=== PATIENT | female | born 1970 | race African-American/Black ===

== ENCOUNTER 2021-03-13 09:22 | Outpatient (CLI) | payer OTHER, SELFPAY ==
[2021-03-13 10:10] LABS: Basophils Percent Auto 0.5 % (0.2-1.2); Eosinophils Absolute Auto 0.1 K/mm3 (0-0.3); Eosinophils Percent Auto 1.7 % (0-4.4); Hematocrit 34.3 % (37.0-47.0); Hemoglobin 10.5 g/dL (12.0-15.0); Immature Granulocyte Absolute 0.01 K/mm3 (0.00-0.031); Immature Granulocyte Percent A 0.2 % (0-0.5); Lymphocytes Absolute Auto 1.33 K/mm3 (0.9-3.2); Lymphocytes Percent Auto 32.4 % (18.3-44.2); Mean Corpuscular HGB Conc 30.6 g/dl (32-36); Mean Corpuscular Hemoglobin 25.4 pg (26-34); Mean Corpuscular Volume 82.9 fl (80-100); Mean Platelet Volume 10.1 fl (7.4-10.4); Monocytes Absolute Auto 0.4 K/mm3 (0.1-0.6); Monocytes Percent Auto 9.2 % (2.6-8.5); Neutrophils Absolute Auto 2.3 K/mm3 (1.3-6.7); Platelet Count Result 270 k/mm3 (150-375); Red Blood Count 4.14 M/mm3 (4.2-5.4); Red Cell Distribution Width 14.6 % (11.5-14.5); White Blood Count 4.1 K/mm3 (4.5-10.0)
[2021-03-13 10:23] LABS: Hemoglobin A1C 5.9 % (<5.7)
[2021-03-13 10:24] LABS: Alanine Aminotransferase 13 U/L (4-35); Albumin Level 4.1 g/dL (3.5-5.1); Alkaline Phosphatase 51 U/L (38-126); Anion Gap 9 mmol/L (8-16); Aspartate Amino Transferase 24 U/L (14-36); Bilirubin,Total 0.1 mg/dL (0.2-1.3); Blood Urea Nitrogen 11 mg/dL (7-17); Calcium 8.9 mg/dL (8.4-10.2); Carbon Dioxide 24 mmol/L (22-30); Chloride 106 mmol/L (98-107); Cholesterol 188 mg/dL (0-200); Estimated Glomerular Filt Rate > 60; Glucose 99 mg/dL (65-105); HDL Direct 59 mg/dL; Potassium 3.9 mmol/L (3.4-5.0); Sodium 139 mmol/L (137-145); Triglycerides 52 mg/dL (<150)
[2021-03-13 10:35] LABS: LDL Cholesterol Direct 86 mg/dL
[2021-03-13 11:48] LABS: Free T4 Free Thyroxine 1.08 ng/mL (0.78-2.19)
== END 2021-03-13 09:23 | disposition home or self-care (01) ==
LOC: ANHLAB 09:24
PROVIDERS: PCP Family Medicine; Visit Provider Family Medicine
DX: R03.0 Elevated blood-pressure reading, without diagnosis of hypertension (principal); E04.1 Nontoxic single thyroid nodule; R73.01 Impaired fasting glucose; Z13.220 Encounter for screening for lipoid disorders
CPT/HCPCS: 36415; 80053; 80061; 83036; 84439; 84443; 85025

== ENCOUNTER 2021-11-05 09:14 | Outpatient (CLI) | payer BC, SELFPAY ==
--- NOTE | ~2021-11-05 | MR_ITS ---
EXAMINATION: MR wrist LT wo con DATE: 11/05/2021 09:55 INDICATION: Left wrist pain TECHNIQUE: Magnetic resonance imaging (MRI) of the left wrist was performed without intravenous contr ast. Sequences performed include axial PD-weighted FSE and PD-weighted FS FSE, coronal PD-weighted FS FSE and T1-weighted SE, and sagittal PD-weighted FS FSE and PD-weighted FSE. COMPARISON: Left wrist radiographs dated 10/20/2021 FINDINGS: Intrinsic ligaments: The scapholunate and lunotriquetral ligaments are normal. Triangular fibrocartilage complex (TFCC): The triangular fibrocartilage including its foveal and styloid attachments as well as the dorsal and volar radioulnar ligaments are normal. The ulnar collateral ligament, ulnotriquetral ligament and men iscal homologue are normal. The extensor carpi ulnaris tendon sheath is normal. Extensor wrist: There is thickening and mild increased signal of the extensor retinaculum overlying the stress tuberc le situated between the third and fourth dorsal compartments. There is fusiform thickening and mild c entral increased signal of the extensor pollicis longus tendon consistent with tendinosis without dis crete tear. There is minimal surrounding increased fluid signal in the extensor pollicis longus tendo n sheath consistent with mild tenosynovitis. Remaining extensor tendons of the wrist are normal. Flexor wrist: The flexor tendons of the wrist are normal. No abnormality in the carpal tunnel with normal median n erve. Guyon's canal: Guyon's canal including the ulnar nerve and artery are normal. Bones/other: Normal marrow signal. No fracture, erosions, avascular necrosis or abnormal marrow replacing process. Mild osteoarthritis at the first carpometacarpal joint. Remaining joint spaces appear relatively pre served. No erosions. 11 x 6 x 7 mm multilobulated ganglion cyst arising from the volar aspect of the wrist joint and extending radially to the deep margin of the radial neurovascular bundle and flexor c arpi radialis tendon. IMPRESSION: 1. Extensor pollicis longus tendinosis without discrete tear and with mild associated tenosynovitis. 2. Small multiloculated ganglion cyst at the radial/volar aspect of the wrist. Reviewed, dictated and finalized at location A. [facility] OPERATOR IMPRESSION: 1. Extensor pollicis longus tendinosis without discrete tear and with mild asso ciated tenosynovitis. 2. Small multiloculated ganglion cyst at the radial/volar aspect of the wrist.
== END 2021-11-05 09:15 ==
PROVIDERS: Visit Provider Nurse Practitioner Family
DX: M67.432 Ganglion, left wrist (principal)
CPT/HCPCS: 73221

== ENCOUNTER 2022-03-26 10:59 | Emergency (ER) | payer BC, SELFPAY ==
--- NOTE | ~2022-03-26 | XR_ITS ---
EXAMINATION: XR thoracic spine 3V DATE: 03/26/2022 12:14 INDICATION: Thoracic back pain TECHNIQUE: AP, lateral and lateral swimmer's views of the thoracic spine were obtained. COMPARISON: None. FINDINGS: Bone alignment is normal. There is no fracture. There is mild loss of intervertebral disc s pace height throughout the thoracic spine. Small degenerative osteophytes project from the anterior e ndplates of multiple vertebral bodies. The vertebral body heights are normal. IMPRESSION: 1. Moderate thoracic spondylosis without acute findings. Reviewed, dictated and finalized at location B.
--- NOTE | ~2022-03-26 | XR_ITS ---
EXAMINATION: XR ribs LT 2V INDICATION: Left-sided chest pain TECHNIQUE: Four views of the left ribs were obtained. COMPARISON: None. FINDINGS: The examination is limited by the patient's body habitus. No displaced rib fracture is iden tified. The visualized portions of the lungs are for any of acute opacities. Calcified pulmonary nodu les are consistent with old granulomatous disease. The heart size is normal. No pleural effusion or p neumothorax. IMPRESSION: 1. No acute cardiopulmonary abnormality or evidence of displaced rib fracture. Reviewed, dictated and finalized at location B.
[2022-03-26 11:01] VITALS: BP 167/111; PULSE 68; RESP 18; TEMP 36.7; O2SAT 99
--- NOTE | 2022-03-26 11:29 | PC.NURSE ---
pt amb to room 5 talking on cell phone
--- NOTE | 2022-03-26 11:38 | ED.BACK ---
HPI - Back Pain/Injury General Chief Complaint: Back Pain/Injury Stated Complaint: fall, back pain Time Seen by Provider: 03/26/22 11:21 History of Present Illness HPI Narrative: 51-year-old female presents emergency room for evaluation of mid back pain. Patient states that she stepped out of the bathtub slipped and fell landing backwards and striking her back on the side of the bathtub. Patient states that there was a pumice stone on the side of the bathtub, and reports crushing the stone when falling. Patient was at work, and her peers were pulling small fragments of the pulm stone out. Patient reports mid back pain that radiates into her posterior left rib cage pain pain is not worse with inspiration, but is worse with movement and touch. Related Data Allergies Allergy/AdvReac Type Severity Reaction Status Date / Time No Known Allergies Allergy Verified 03/26/22 11:33 Review of Systems Review of Systems: CONSTITUTIONAL: Denies fever, chills, or sweats. EYES: Denies visual changes, redness, or discharge. ENT: Denies rhinorrhea, congestion, sore throat, or otalgia. CARDIOVASCULAR: Denies chest pain, palpitations, or edema. RESPIRATORY: Denies cough or dyspnea. GASTROINTESTINAL: Denies abdominal pain, nausea, vomiting, or diarrhea. GENITOURINARY: Denies dysuria or hematuria. SKIN: Denies rash or itching. MUSCULOSKELETAL: Reports back pain NEUROLOGIC: Denies headache, numbness, dizziness, or weakness. PSYCHIATRIC: Denies anxiety or depression. [facility] Past Medical History Medical History Abnormality of heart beat Benign essential HTN Chronic anemia DJD of shoulder Ganglion cyst of wrist Left shoulder pain Left wrist pain Need for lipid screening Prediabetes Thyroid nodule Uterine fibroid Wellness examination Surgical History Surgical History History of tubal ligation Hx of section Family History Family History Father Family history of elevated blood lipids Family history of diabetes mellitus in first degree relative Other Arthritis Diabetes mellitus Family history of premature coronary heart disease Hypertension Social History Social History (Reviewed 03/26/22 @ 11:39 by ASHISH Wall Social History: Second hand tobacco smoke exposure: No Alcohol intake: current Alcohol use details: 5/month Substance use: never Substance use type: does not use Gender identity (if verbalized by the patient): Female Sexual Orientation (if Verbalized by the Patient): Straight or Heterosexual Exam Narrative: GENERAL: Well-appearing, well-nourished, no physical limitations, and in no acute distress. HEAD: Normocephalic, atraumatic. EYES: Conjunctivae normal, PERRLA and EOMI. CHEST: Clear to auscultation. No respiratory distress. No wheezes rales or rhonchi. No tenderness. HEART: Regular rate and rhythm. No murmur heard. Normal peripheral pulses. BACK: No CVA tenderness; mid thoracic back pain, no midline tenderness, no step-offs, full range of motion. Tenderness to the left posterior lateral ribs, no noted flail chest. EXTREMITIES: Normal range of motion. No edema. No clubbing or cyanosis SKIN: Abrasion noted to left thoracic spine NEURO: No focal deficits. Alert and oriented x3. MAEW. CN's II-XI intact bilaterally, normal gait PSYCH: Cooperative. Normal mood and affect. Course Vital Signs Vital signs: Vital Signs Temperature 36.7 C 03/26/22 11:01 Pulse Rate 68 03/26/22 11:01 Respiratory Rate 18 03/26/22 11:01 Blood Pressure 167/111 H 03/26/22 11:01 Pulse Oximetry 99 03/26/22 11:01 Temperature 36.7 C 03/26/22 11:01 Pulse Rate 68 03/26/22 11:01 Respiratory Rate 18 03/26/22 11:01 Blood Pressure 167/111 H 03/26/22 11:01 Pulse Oximetry 99 03/26/22 11:01 [facility] - [facility]
[2022-03-26 12:52] VITALS: BP 138/76; PULSE 78; RESP 16; O2SAT 99
== END 2022-03-26 12:53 | disposition home or self-care (01) ==
PROVIDERS: Emergency Provider Nurse Practitioner Family; PCP Family Medicine
DX: S20.222A Contusion of left back wall of thorax, initial encounter (principal); S20.412A Abrasion of left back wall of thorax, initial encounter; I10 Essential (primary) hypertension; D64.9 Anemia, unspecified; R73.03 Prediabetes; M47.814 Spondylosis without myelopathy or radiculopathy, thoracic region; W18.2XXA Fall in (into) shower or empty bathtub, initial encounter
CPT/HCPCS: 71100; 72072; 99283

== ENCOUNTER 2023-01-11 00:52 | Day surgery (SDC) | payer BC, SELFPAY ==
[2023-01-01 08:52] VITALS: BMI 36.5
--- NOTE | 2023-01-11 07:21 | P.PNAN_ITS ---
Anes - Initial Pre Proc Eval Procedure: Operation Date: 01/11/23 09:00 Proposed Procedures p Screening Colonoscopy - Eriberto Eller MD Date/Time: 01/11/23 07:21 Surgeon: Eriberto Eller MD Pre Op Diagnosis: neoplasm screening Patient Data Age: 52 Gender: F Height: 1.5 m Weight: 82 kg Allergies Allergy/AdvReac Type Severity Reaction Status Date / Time No Known Allergies Allergy Verified 01/11/23 07:43 Home Medications Medication Instructions Recorded Confirmed Type No Home Medications 01/01/23 01/01/23 History Patient hx anesthesia problems: none Family hx anesthesia problems: none Results Review: All pre-operative results and documents have been reviewed as part of the pre- operative evaluation. [facility] Past Medical History Medical History (Updated 11/28/22 @ 14:10 by Isis Nuñez MD) Abnormality of heart beat Benign essential HTN Breast cancer screening Bronchitis Chronic anemia Dietary counseling and surveillance (02/22/19) DJD of shoulder Encounter for vitamin deficiency screening FHx: coronary arteriosclerosis Ganglion cyst of wrist Left shoulder pain Left wrist pain Lipid screening Need for lipid screening Pharyngitis due to Streptococcus species Prediabetes Prediabetes Screening for diabetes mellitus (DM) Subacute maxillary sinusitis Thyroid nodule Thyroid nodule Uterine fibroid Vitamin D deficiency Well adult on routine health check Wellness examination Surgical History Surgical History History of tubal ligation Hx of section Family History Family History Father Family history of elevated blood lipids Family history of diabetes mellitus in first degree relative Other Arthritis Diabetes mellitus Family history of premature coronary heart disease Hypertension Social History Social History (Updated 11/17/22 @ 11:00 by Bianka Lazo) Social History: Smoking status: Never smoker Second hand tobacco smoke exposure: No Alcohol intake: current Alcohol use details: occasional Substance use: never Substance use type: does not use Living arrangements: alone Occupation/Education: occupation Gender identity (if verbalized by the patient): Female Sexual Orientation (if Verbalized by the Patient): Straight or Heterosexual Spiritual care concerns: No Anes - Eval Final PreProcedure Day of Procedure 04/24/23 07:21 Patient weight: obese Heart: regular rate and rhythm Lungs: clear to auscultation Airway: Mallampati scale class II Neurological: alert and oriented Last oral intake: >/= 8 hours ASA classification: II Emergent: no Anesthetic plan: proceed Anesthesia type and monitoring: general GIVS and standard monitoring Results Review: All pre-operative results and documents have been reviewed as part of the pre- operative evaluation. Informed Consent: The patient's anesthetic plan and its attendant risks and benefits were discussed with the patient/family/POA. Questions were solicited and answers prov ided to the satisfaction of the patient/family/POA.
[2023-01-11 07:44] VITALS: BP 146/91; PULSE 74; RESP 20; TEMP 36.4; O2SAT 100
[2023-01-11] MEDS: LACTATED RINGERS 1,000 ML 150 ML IV CONT (07:56)
--- NOTE | 2023-01-11 08:37 | PM.HPGS ---
History of Present Illness History of Present Illness Consent: Risks, benefits, and alternatives have been discussed and questions answered. Patient agrees to proceed with procedure. Chief complaint: neoplasm screening Narrative: Nolvia Cortes is a 52 year old female here for first screening colonoscopy Review of Systems Constitutional: Constitutional: Denies headache(s) and Denies weakness Eyes: Eyes: Denies blurry vision ENT: Reports Normal hearing present, Denies headache(s) and Denies neck pain Cardiovascular: Cardiovascular: Denies chest pain and Denies dyspnea Respiratory: Respiratory: Denies dyspnea Gastrointestinal: Gastrointestinal: Reports no additional gastrointestinal complaints Genitourinary: Genitourinary: Denies dysuria Musculoskeletal: Musculoskeletal: Denies neck pain Integumentary/Breasts: Skin/Breast: Denies dry skin Neurologic: Reports Normal hearing present, Denies headache(s) and Denies weakness Psychiatric: Psychiatric: Denies anxiety Endocrine: Endocrine: Denies change in body appearance Hematologic/Lymphatic: Hematologic/Lymphatic: Denies easy bleeding Allergic/Immunologic: Allergic/Immunologic: Denies urticaria PMF Past Medical History Medical History (Updated 11/28/22 @ 14:10 by Isis Nuñez MD) Abnormality of heart beat Benign essential HTN Breast cancer screening Bronchitis Chronic anemia Dietary counseling and surveillance (02/22/19) DJD of shoulder Encounter for vitamin deficiency screening FHx: coronary arteriosclerosis Ganglion cyst of wrist Left shoulder pain Left wrist pain Lipid screening Need for lipid screening Pharyngitis due to Streptococcus species Prediabetes Prediabetes Screening for diabetes mellitus (DM) Subacute maxillary sinusitis Thyroid nodule Thyroid nodule Uterine fibroid Vitamin D deficiency Well adult on routine health check Wellness examination Surgical History Surgical History History of tubal ligation Hx of section Family History Family History Father Family history of elevated blood lipids Family history of diabetes mellitus in first degree relative Other Arthritis Diabetes mellitus Family history of premature coronary heart disease Hypertension Social History Social History (Updated 11/17/22 @ 11:00 by Bianka Lazo) Social History: Smoking status: Never smoker Second hand tobacco smoke exposure: No Alcohol intake: current Alcohol use details: occasional Substance use: never Substance use type: does not use Living arrangements: alone Occupation/Education: occupation Gender identity (if verbalized by the patient): Female Sexual Orientation (if Verbalized by the Patient): Straight or Heterosexual Spiritual care concerns: No Meds Home Medications and Allergies Home Medications Medication Instructions Recorded Confirmed Type No Home Medications 01/01/23 01/01/23 History Allergies Allergy/AdvReac Type Severity Reaction Status Date / Time No Known Allergies Allergy Verified 01/11/23 07:43 Vital Signs Vital Signs - 24 hr 01/11/23 07:44 Temperature 97.5 F L Pulse Rate 74 Respiratory Rate 20 Blood Pressure 146/91 H Pulse Oximetry 100 Oxygen Delivery Room Air Exam Const: General: comfortable and no acute distress HENMT: Face/Nose/Sinus: Normal nares present Eyes: General: appearance normal, both eyes and all related structures Neck: Neck: no JVD Resp: Auscultation: clear to auscultation bilaterally Cardio: Rate: regular rate Rhythm: regular rhythm GI: Inspection: non-distended GI Palp: Yes Soft to palpation Skin: General skin exam: normal color Neuro: General: gait normal Speech: normal speech Extrem: General: normal to inspection Psych: Mental Status: mental status grossly normal Assessment and
[2023-01-11 09:08] VITALS: BP 130/106; PULSE 97; RESP 26; O2SAT 99
[2023-01-11 09:18] VITALS: BP 113/71; PULSE 82; RESP 17; O2SAT 98
[2023-01-11 09:28] VITALS: BP 114/75; PULSE 85; RESP 17; O2SAT 98
== END 2023-01-11 09:58 | disposition home or self-care (01) ==
PROVIDERS: PCP Family Medicine; Visit Provider Internal Medicine Gastroenterology
PROC: 0DJD8ZZ Inspection of Lower Intestinal Tract, Via Natural or Artificial Opening Endoscopic (ICD-10-PCS; CPT 45378; principal; 2023-01-11 09:00)
DX: Z12.11 Encounter for screening for malignant neoplasm of colon (principal); D12.3 Benign neoplasm of transverse colon; K64.8 Other hemorrhoids; E66.9 Obesity, unspecified; Z68.36 Body mass index [BMI] 36.0-36.9, adult
CPT/HCPCS: 45385; 88305; J2704; J7120

== ENCOUNTER 2023-08-24 12:09 | Outpatient (CLI) | payer BC, SELFPAY ==
--- NOTE | ~2023-08-24 | US_ITS ---
EXAMINATION:US venous doppler LE LT INDICATION:Left leg swelling and pain TECHNIQUE: Multiple grayscale, color flow and Doppler images of the left lower extremity deep venous systems were obtained and reviewed. COMPARISON:No prior studies for comparison. FINDINGS: The common femoral, superficial femoral and popliteal veins demonstrate normal respiratory variation, augmentation and compressibility. Color flow is also seen within the posterior tibial, pe roneal, greater saphenous and profunda veins. IMPRESSION: 1: No lower extremity deep venous thrombosis. Reviewed, dictated and finalized at location L. R BANDER HAND
== END 2023-08-24 12:10 | disposition home or self-care (01) ==
PROVIDERS: PCP Family Medicine; Visit Provider Physician Assistant
DX: M79.89 Other specified soft tissue disorders (principal)
CPT/HCPCS: 93971